=== PATIENT | male | born 1970 | race Caucasian/White ===

== ENCOUNTER 2017-01-12 06:45 | Emergency (ER) | payer BC | END 2017-01-12 09:10 | disposition home or self-care (01) | LOC: ER1 06:45 | DX: S20.211A Contusion of right front wall of thorax, initial encounter (principal); F17.210 Nicotine dependence, cigarettes, uncomplicated; W17.89XA Other fall from one level to another, initial encounter | CPT/HCPCS: 71101; 99283 ==

== ENCOUNTER 2021-02-10 14:37 | Emergency (ER) | payer OTHER ==
[~2021-02-10 14:37] MED LIST: MEDROL4 MG PO
== END 2021-02-10 17:05 | disposition home or self-care (01) ==
LOC: ER1 14:37
DX: S61.411A Laceration without foreign body of right hand, initial encounter (principal); F17.210 Nicotine dependence, cigarettes, uncomplicated; Z23 Encounter for immunization; W31.2XXA Contact with powered woodworking and forming machines, initial encounter; Y92.009 Unspecified place in unspecified non-institutional (private) residence as the place of occurrence of the external cause
CPT/HCPCS: 12001; 73130; 90471; 90714; 99283

== ENCOUNTER → 2022-06-04 | Outpatient (CLI) | payer OTHER | LOC: KOH-I 12:30 | DX: M54.50 Low back pain, unspecified (principal); M47.814 Spondylosis without myelopathy or radiculopathy, thoracic region; M47.816 Spondylosis without myelopathy or radiculopathy, lumbar region; M51.36 Other intervertebral disc degeneration, lumbar region | CPT/HCPCS: 72070; 72100 ==